=== PATIENT | male | born 1955 | race Caucasian/White ===

== ENCOUNTER 2017-05-22 10:30 | Outpatient (RCR) | payer OTHER ==
[2015-05-20 09:00] VITALS: BP 124/94
[~2017-05-22 10:30] MED LIST: AMOX-559 PO; ASPI-1441 PO; ASPI-757 PO; ASPI81TA94 PO; ATOR10TA24 PO; ATOR40TA24 PO; BENA40TA52 PO; BENA5TAB32 PO; CIPR-345 PO; CLO75 PO; FLU60SYR30 IM ONLY; HYDR-2966 PO; IBUP200C74 PO; LEV500 PO; METO25TA23 PO; METO25TA91 PO; METO50TA19 PO; MULT1CAP41 PO; OMEP-218 PO; PHEN-530 PO; SIMV-42 PO; TAMS0.4C25 PO; VENL25TA3 PO; VENL75CA58 PO; [UNRECOGNIZED DRUG - CODE] PO
[2017-05-22] MEDS ORDERED: HYDR-2966 PO (11:34)
[2017-05-22] MEDS ORDERED: MULT-1354 PO (11:35)
[2017-05-25] MEDS ORDERED: CEF300 PO (10:11)
== END 2017-05-23 09:30 | disposition home or self-care (01) ==
LOC: RAON 10:30
PROVIDERS: ATTEND Radiology Radiation Oncology
DX: Z85.46 Personal history of malignant neoplasm of prostate (principal); I25.10 Atherosclerotic heart disease of native coronary artery without angina pectoris; K21.9 Gastro-esophageal reflux disease without esophagitis; I25.2 Old myocardial infarction; E78.00 Pure hypercholesterolemia, unspecified; I10 Essential (primary) hypertension; Z92.3 Personal history of irradiation
CPT/HCPCS: 36415; 84153; 99212

== ENCOUNTER → 2017-11-08 | Outpatient (CLI) | payer OTHER ==
[~2017-11-08] MED LIST changes: +ATOR40TA69 PO; +CEF300 PO; +MULT-1354 PO; +VENL75CA4 PO
[2017-11-08 09:18] LABS: PLATELET COUNT, AUTOMATED 224 K/uL (150-450)
--- NOTE | 2017-11-08 09:24 | EKG ---
FACILITY: [facility] [place] PATIENT NAME: SANDEE COWAN : [id number] MR: [id number] V: [id number] EXAM DATE: ORDERING PHYSICIAN: LES KOLB TECHNOLOGIST: NEREIDA MOON Test Reason : PRE-OP CLEARANCE Blood Pressure : / mmHG Vent. Rate : 085 BPM Atrial Rate : 085 BPM P-R Int : 136 ms QRS Dur : 094 ms QT Int : 406 ms P-R-T Axes : 005 -31 -01 degrees QTc Int : 483 ms Sinus rhythm with sinus arrhythmia with occasional premature ventricular complexes Left axis deviation Prolonged QT Abnormal ECG No previous ECGs available Referred By: Confirmed By:
== END ==
LOC: LAB 08:37
PROVIDERS: ATTEND Emergency Medicine
DX: Z01.818 Encounter for other preprocedural examination (principal); R94.31 Abnormal electrocardiogram [ECG] [EKG]
CPT/HCPCS: 36415; 82040; 82247; 82310; 82374; 82435; 82565; 82947; 84075; 84132; 84155; 84295; 84450; 84460; 84520; 85025

== ENCOUNTER → 2017-12-06 | Outpatient (CLI) | payer OTHER ==
[~2017-12-06] MED LIST changes: +ATOR-1 PO; -BENA40TA52 PO; +BENA40TA53 PO; +POTA20TA94 PO
== END ==
LOC: LAB 14:34
PROVIDERS: ATTEND Emergency Medicine
DX: I10 Essential (primary) hypertension (principal); R74.0 Nonspecific elevation of levels of transaminase and lactic acid dehydrogenase [LDH]
CPT/HCPCS: 36415; 82103; 82310; 82374; 82390; 82435; 82565; 82784; 82947; 83516; 84132; 84160; 84165; 84295; 84520; 86038; 86706; 86707; 86803; 87340; 87350

== ENCOUNTER → 2018-05-28 | Outpatient (CLI) | payer OTHER ==
--- NOTE | 2018-05-28 10:05 | RADIOLOGY IMAGING REPORT ---
[place] [facility] [place] NAME: Trent Reyes : 1955 MR: [id number] V: [id number] EXAM DATE: ORDERING PHYSICIAN: LES KOLB TECHNOLOGIST: Location: [facility] [place] Patient: Trent Reyes : 1955 Visit/Account:[id number] Date of Sevice: 05/28/2018 LIVER HISTORY: Elevated ALTs COMPARISON: CT abdomen and pelvis December 19, 2012 FINDINGS: Gallbladder: Unremarkable; no stones or sludge. Liver: Liver is mildly enlarged at 18.4 cm. There is a coarse echotexture seen throughout the liver which may represent an infiltrative process although discrete mass is not demonstrated. Posterior as pect of the liver was not ideally seen due to patient's body habitus Common duct: Normal, 2.6 mm diameter. Pancreas: Partially obscured by bowel, visualized aspects unremarkable. Right kidney: Right kidney appears unremarkable measuring 10.6 cm in length Upper abdominal aorta and IVC: Patent. Ascites: None visualized. IMPRESSION: Mild hepatomegaly with coarse echotexture throughout the liver which can be seen with an infiltrative process. The posterior aspect liver was not ideally visualized due to patient's body habitus Report Dictated By: Gege Jacobo MD at 05/28/2018 9:41 AM Report E-Signed By: Gege Jacobo MD at 05/28/2018 10:00 AM WSN:[email or web address]
== END ==
LOC: US 01:27
PROVIDERS: ATTEND Emergency Medicine
DX: R16.0 Hepatomegaly, not elsewhere classified (principal); R93.9 Diagnostic imaging inconclusive due to excess body fat of patient
CPT/HCPCS: 76705

== ENCOUNTER 2018-06-04 12:00 | Outpatient (RCR) | payer OTHER ==
[2015-05-20 09:00] VITALS: BP 124/94
--- NOTE | 2018-06-05 04:13 | ONCOLOGY FOLLOW UP NOTE ---
EVENT DATE: June 04, 2018 CHIEF COMPLAINT/REASON FOR VISIT Oncology reassessment; known history of prostate carcinoma. See below. HISTORY OF PRESENT ILLNESS This is a 62-year-old gentleman who was originally diagnosed with Kaiden 6 adenocarcinoma of the prostate in June 2012. He had a high PSA prior to treatment, which was 18.4 ng/mL. Patient was treated with external beam radiation therapy to 4500 cGy in 25 fractions, completed February 17, 2013. This was followed by a palladium-103 prostate brachytherapy seed implant with the urology team. That procedure was completed on 03/24/2013. The patient's PSA has fallen to the undetectable range for the last two years. The most recent PSA was 05/21/18, which was less than 0.1 ng/mL. Overall he is doing well. He denies any significant change in voiding function. He has baseline nocturia x1, but normal urinary function throughout the day. MEDICATIONS 1. Venlafaxine 75 mg ER daily. 2. Potassium chloride 20 mEq daily. 3. Atorvastatin 80 mg daily. 4. Hydrochlorothiazide 25 mg daily. 5. Metoprolol 50 mg ER daily. 6. Benazepril 40 mg daily. 7. MVI. 8. Aspirin 81 mg p.o. daily. ALLERGIES 1. MSG. 2. FENTANYL. PAST MEDICAL HISTORY 1. Coronary artery disease. 2. Prostate carcinoma. 3. Hypertension. 4. Hypercholesterolemia. PAST SURGICAL HISTORY 1. Prostate biopsy. 2. Previous cardiac stent placement. 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 Nonsmoker. Social alcohol use. with four children. FAMILY HISTORY Positive for father who had prostate cancer at age 63. Mother had colon cancer at age 70. REVIEW OF SYSTEMS Essentially negative. Patient states he did have severe bronchitis over the holidays and also an ear infection. Those symptoms have resolved at this time. PHYSICAL EXAMINATION VITAL SIGNS: Blood pressure 129/90, pulse 73, respirations 16, O2 saturation 93% on room air, weight 201. LUNGS: Clear bilaterally. LYMPHATIC: No lymphadenopathy. CARDIOVASCULAR: Heart sounds regular. ABDOMEN: Soft. No gross organomegaly. RECTAL: Exam is deferred, as PSA is undetectable. IMPRESSION Patient is doing exceptionally well. No evidence of prostate carcinoma recurrence with stable PSA at 0. He will return to the clinic in one year with an updated PSA prior to that appointment. He typically gets his blood work through the [facility]. [place]
== END 2018-06-17 08:32 | disposition home or self-care (01) ==
LOC: RAON 12:00
PROVIDERS: ATTEND Radiology Radiation Oncology
DX: C61 Malignant neoplasm of prostate (principal); D29.1 Benign neoplasm of prostate; N41.1 Chronic prostatitis; I25.10 Atherosclerotic heart disease of native coronary artery without angina pectoris; K21.9 Gastro-esophageal reflux disease without esophagitis; E78.00 Pure hypercholesterolemia, unspecified; I10 Essential (primary) hypertension; I25.2 Old myocardial infarction; Z79.82 Long term (current) use of aspirin